=== PATIENT | male | born 1965 | race Caucasian/White ===

== ENCOUNTER 2025-06-23 10:22 | Emergency (ER) | payer SELFPAY ==
[2025-06-23] MEDS ORDERED: HYDROcodone/Acetaminophen 10/325 mg Tablet ONE (10:58)
[2025-06-23 11:03] LABS: #Basophils 0.05 10x3/uL (0.0-0.2); #Eosinophils 0.20 10x3/uL (0.0-0.7); #Monocytes 0.69 10x3/uL (0.11-0.59); #Neutrophils 4.54 10x3/uL (1.40-6.50); %Basophils 0.7 % (0.0-1.0); %Eosinophils 2.9 % (0.0-10.0); %Lymphocytes 20.7 % (21.0-51.0); %Monocytes 10.0 % (0.0-10.0); %Neutrophils 65.6 % (42.0-75.0); Hematocrit 37.7 % (42.0-52.0); Hemoglobin 11.8 g/dL (14.0-18.0); Mean Corpuscular Hemoglobin 24.8 pg (27.0-31.0); Mean Corpuscular Volume 79.2 fL (78.0-98.0); Platelet Count 345 10x3/uL (130-400); Red Blood Cell (RBC) Count 4.76 mill/uL (4.70-6.10); White Blood Cell (WBC) Count 6.92 10x3/uL (4.8-10.8)
[2025-06-23 11:20] LABS: ALT (SGPT) 19 U/L (Less than 45); AST (SGOT) 27 U/L (11-34); Albumin 3.4 g/dL (3.1-4.5); Alkaline Phosphatase 74 U/L (40-110); Anion Gap 15 mmol/L (10-20); BUN (Urea Nitrogen) 17 mg/dL (8.4-25.7); Bilirubin, Total 0.2 mg/dL (0.3-1.2); Calc. Creatinine Clearance 0 mL/min (70-130); Calcium 8.8 mg/dL (7.8-10.44); Carbon Dioxide 21 mmol/L (22-29); Chloride 106 mmol/L (98-107); Globulin 3.0 g/dL (2.4-3.5); Glucose 96 mg/dL (70-105); Potassium 4.0 mmol/L (3.5-5.1); Sodium 138 mmol/L (136-145)
[2025-06-23] MEDS ORDERED: Amoxicillin/Potassium Clav 875 MG TAB ONE (12:21)
== END 2025-06-23 12:28 | disposition home or self-care (01) ==
LOC: ERS 10:22
DX: L03.113 Cellulitis of right upper limb (principal); F17.210 Nicotine dependence, cigarettes, uncomplicated
CPT/HCPCS: 80053; 85025; 86141